=== PATIENT | female | born 1990 | race Caucasian/White ===

== ENCOUNTER 2017-11-18 14:09 | Emergency (ER) | payer OTHER, SELFPAY ==
[2017-11-18 14:15] VITALS: BP 124/86; PULSE 102; RESP 20; TEMP 36.5; O2SAT 97; BMI 32.3
--- NOTE | 2017-11-18 14:31 | HMH.EDUTC ---
[facility] [place] Disposition Clinical Impression: Vertigo Disposition: Home, Self-Care Condition on Discharge: Good Instructions: DI for Vertigo Additional Instructions: F/U with Dr Leggett if not improving Prescriptions: methylPREDNISolone [Medrol] 4 mg PO DIRECTED 6 Days #1 tab.ds.pk methylPREDNISolone [Medrol] 4 mg PO DIRECTED 6 Days #1 tab.ds.pk Meclizine HCl [Motion Sickness Relief] 25 mg PO TID PRN 10 Days #30 tab PRN Reason: Vertigo Referrals: Ervin Leggett MD [Primary Care Provider] - Time of Disposition: 14:37 Medical Decision Making - Kaleb Inquiry Pt receiving controlled substance: No Vital Signs: 11/18/17 14:15 Temperature 97.7 F Temperature Source Temporal Artery Scan Pulse Rate [Brachial] 102 H Respiratory Rate 20 Blood Pressure [Right Arm] 124/86 Blood Pressure Mean [Right Arm] 98 Blood Pressure Position [Right Arm] Sitting 02 Sat by Pulse Oximetry 97 Oxygen Delivery Method Room Air [facility] [place] HPI - General Stated complaint: dizzy Time Seen by Provider: 11/18/17 14:20 Mode of Arrival: Ambulatory Source of Information: Patient Limitations: No Limitations Description of Symptoms (Recalled from Triage Doc. by RN): DIZZY WITH MOVEMENT THAT BEGAN YESTERDAY HEENT Symptoms (Recalled from RN notes): Yes Resp Symptoms (Recalled from RN notes): No Skin Symptoms (Recalled from RN notes): No MS Symptoms (Recalled from RN notes): No Functional Status (Recalled from RN notes): NA - History of Present Illness Provider Complaint: Dizziness X 1 day. Nausea but no vomiting. Worse with movement. Feels like the room is spinning. No ear pain. No sore throat. Onset (ago): day(s) (1) Location: head Relieving factors: none Exacerbating factors: none Associated symptoms: denies other symptoms Treatments prior to arrival: none - Related Data Previous Rx's Medication Instructions Recorded Meclizine HCl [Motion Sickness 25 mg PO TID PRN 10 Days #30 tab 11/18/17 Relief] methylPREDNISolone [Medrol] 4 mg PO DIRECTED 6 Days #1 11/18/17 tab.ds.pk methylPREDNISolone [Medrol] 4 mg PO DIRECTED 6 Days #1 11/18/17 tab.ds.pk Allergies Allergy/AdvReac Type Severity Reaction Status Date / Time No Known Allergies Allergy Verified 11/18/17 14:18 - Worker's Comp Is this a Worker's Comp case?: No [facility] History I have reviewed the patient's past medical history: Yes Laterality Cases: Bilateral: Tonsillectomy - Social History Alcohol Intake: never - Psychiatric History Expresses thoughts of harming self/others: None Suicide Plan Description: No Plan ROS Obtained: Yes All systems reviewed & no additional complaints - Gastrointestinal Gastrointestingal: Reports: nausea - Neurologic Neurologic: Reports dizziness, Reports vertigo Physical Exam - General General appearance: alert, in no apparent distress - Head Head exam: atraumatic, normocephalic - Eye Eye exam: Present: normal appearance, PERRL, nystagmus - ENT ENT exam: Present: normal exam, normal oropharynx - Chest Chest inspection: Present: normal inspection, symmetric chest wall rise - Respiratory Respiratory exam: Present: normal lung sounds bilaterally - Cardiovascular Cardiovascular exam: Present: regular rate, normal rhythm - Extremities Exam Extremities exam: Present: normal inspection, full ROM - Neurological Exam Neurological exam: Present: alert, oriented X3 - Psychiatric Psychiatric exam: Present: normal affect, normal mood - Skin Skin exam: Present: warm, dry, intact
--- NOTE | 2017-11-18 14:34 | ED_ITS ---
[facility] [place] Disposition Clinical Impression: Vertigo Disposition: Home, Self-Care Condition on Discharge: Good Instructions: DI for Vertigo Additional Instructions: F/U with Dr Leggett if not improving Prescriptions: methylPREDNISolone [Medrol] 4 mg PO DIRECTED 6 Days #1 tab.ds.pk methylPREDNISolone [Medrol] 4 mg PO DIRECTED 6 Days #1 tab.ds.pk Meclizine HCl [Motion Sickness Relief] 25 mg PO TID PRN 10 Days #30 tab PRN Reason: Vertigo Referrals: Ervin Leggett MD [Primary Care Provider] - Time of Disposition: 14:37 Medical Decision Making - Kaleb Inquiry Pt receiving controlled substance: No Vital Signs: 11/18/17 14:15 Temperature 97.7 F Temperature Source Temporal Artery Scan Pulse Rate [Brachial] 102 H Respiratory Rate 20 Blood Pressure [Right Arm] 124/86 Blood Pressure Mean [Right Arm] 98 Blood Pressure Position [Right Arm] Sitting 02 Sat by Pulse Oximetry 97 Oxygen Delivery Method Room Air [facility] [place] HPI - General Stated complaint: dizzy Time Seen by Provider: 11/18/17 14:20 Mode of Arrival: Ambulatory Source of Information: Patient Limitations: No Limitations Description of Symptoms (Recalled from Triage Doc. by RN): DIZZY WITH MOVEMENT THAT BEGAN YESTERDAY HEENT Symptoms (Recalled from RN notes): Yes Resp Symptoms (Recalled from RN notes): No Skin Symptoms (Recalled from RN notes): No MS Symptoms (Recalled from RN notes): No Functional Status (Recalled from RN notes): NA - History of Present Illness Provider Complaint: Dizziness X 1 day. Nausea but no vomiting. Worse with movement. Feels like the room is spinning. No ear pain. No sore throat. Onset (ago): day(s) (1) Location: head Relieving factors: none Exacerbating factors: none Associated symptoms: denies other symptoms Treatments prior to arrival: none - Related Data Previous Rx's Medication Instructions Recorded Meclizine HCl [Motion Sickness 25 mg PO TID PRN 10 Days #30 tab 11/18/17 Relief] methylPREDNISolone [Medrol] 4 mg PO DIRECTED 6 Days #1 11/18/17 tab.ds.pk methylPREDNISolone [Medrol] 4 mg PO DIRECTED 6 Days #1 11/18/17 tab.ds.pk Allergies Allergy/AdvReac Type Severity Reaction Status Date / Time No Known Allergies Allergy Verified 11/18/17 14:18 - Worker's Comp Is this a Worker's Comp case?: No [facility] History I have reviewed the patient's past medical history: Yes Laterality Cases: Bilateral: Tonsillectomy - Social History Alcohol Intake: never - Psychiatric History Expresses thoughts of harming self/others: None Suicide Plan Description: No Plan ROS Obtained: Yes All systems reviewed & no additional complaints - Gastrointestinal Gastrointestingal: Reports: nausea - Neurologic Neurologic: Reports dizziness, Reports vertigo Physical Exam - General General appearance: alert, in no apparent distress - Head Head exam: atraumatic, normocephalic - Eye Eye exam: Present: normal appearance, PERRL, nystagmus - ENT ENT exam: Present: normal exam, normal oropharynx - Chest Chest inspection: Present: normal inspection, symmetric chest wall rise - Respiratory Respiratory exam: Present: normal lung sounds bilaterally - Cardiovascular Cardiovascular exam: Present: regular rate, normal rhythm - Extremiti
[2017-11-18 14:35] VITALS: BP 124/86; PULSE 102; RESP 20; TEMP 36.5; O2SAT 97
== END 2017-11-18 14:41 | disposition home or self-care (01) ==
PROVIDERS: Emergency Provider Physician Assistant; Family Provider Family Medicine; PCP Family Medicine
DX: R42 Dizziness and giddiness (principal); R11.0 Nausea
CPT/HCPCS: 99201

== ENCOUNTER → 2018-04-28 15:26 | Outpatient (CLI) | payer OTHER, SELFPAY ==
--- NOTE | 2018-04-28 15:28 | MR_ITS ---
MR head/brain wo con HISTORY: The vertigo and blurred vision ITS.REASON: DIZZINESS, NEW ONSET HEADACHE ORDERING PHYSICIAN: Nadeen Wills PATIENT AGE: 27 years Comparison: 11/18/2014 TECHNIQUE: Standard multiplanar multiecho sequences are performed without contrast. FINDINGS: No midline shift, mass effect, intracranial hemorrhage, or hydrocephalus is evident. Cerebellopontine angles, cerebellum, and brainstem are unremarkable. No acute infarction. Normal jung-white matter differentiation. The pituitary and optic chiasm are unremarkable. No cerebellar ectopia. The hippocampal gyri are unremarkable. No mastoid effusion or sinus air-fluid level. IMPRESSION: Negative MRI of the brain without contrast
== END ==
PROVIDERS: Family Provider Family Medicine; PCP Family Medicine; Visit Provider Nurse Practitioner Family
DX: R42 Dizziness and giddiness (principal); R51 Headache
CPT/HCPCS: 70551

== ENCOUNTER → 2018-05-16 12:25 | Outpatient (CLI) | payer OTHER, SELFPAY ==
[2018-05-16 15:20] LABS: Erythrocyte Sedimentation Rate 16 mm/hr (0-20)
[2018-05-17 14:20] LABS: Anti-Centromere B Antibodies <0.2 AI (0.0-0.9); Anti-Jo-1 <0.2 AI (0.0-0.9); Anti-Smith Antibody <0.2 AI (0.0-0.9); Antichromatin Antibodies <0.2 AI (0.0-0.9); Antiscleroderma-70 Antibodies <0.2 AI (0.0-0.9); RNP Antibodies <0.2 AI (0.0-0.9); Sjogren's Anti-SS-A <0.2 AI (0.0-0.9); Sjogren's Anti-SS-B <0.2 AI (0.0-0.9)
[2018-05-18 11:26] LABS: Anti-DNA (DS) Ab Qn <1 IU/mL (0-9)
== END ==
PROVIDERS: PCP Nurse Practitioner Family; Visit Provider Specialist
DX: R42 Dizziness and giddiness (principal); R51 Headache
CPT/HCPCS: 36415; 85651; 86225; 86235

== ENCOUNTER → 2018-05-17 16:09 | Outpatient (CLI) | payer OTHER, SELFPAY | PROVIDERS: PCP Nurse Practitioner Family; Visit Provider Specialist | DX: G47.19 Other hypersomnia (principal); R06.83 Snoring; R42 Dizziness and giddiness | CPT/HCPCS: 95806 ==

== ENCOUNTER → 2018-05-27 13:10 | Outpatient (CLI) | payer OTHER, SELFPAY ==
--- NOTE | 2018-05-27 13:11 | MR_ITS ---
MR venography head wo con HISTORY: ITS.REASON: headache, vertigo ORDERING PHYSICIAN: Emani Valencia MD PATIENT AGE: 27 years Comparison: None TECHNIQUE: 2-D xxnp-by-xowoyu images were performed. FINDINGS: The superior sagittal sinus has an unremarkable appearance. There is some decreased signal within the sigmoid sinus on the left. As is also present on the right but somewhat less apparent may be due to slow flow in these areas. IMPRESSION: No evidence of sagittal sinus thrombosis
--- NOTE | 2018-05-27 13:11 | MR_ITS ---
MR angio head wo con HISTORY: ITS.REASON: headache, vertigo ORDERING PHYSICIAN: Emani Valencia MD PATIENT AGE: 27 years Comparison: 04/28/2018 TECHNIQUE: 3-D [id number] images performed without contrast. FINDINGS: No evidence of aneurysm, arteriovenous malformation, or major intracranial occlusive process. There is persistent origin of the right posterior cerebral artery as a normal variant. IMPRESSION: Negative MRA of the brain
== END ==
PROVIDERS: Family Provider Family Medicine; PCP Nurse Practitioner Family; Visit Provider Specialist
DX: R42 Dizziness and giddiness (principal); R51 Headache
CPT/HCPCS: 70544

== ENCOUNTER 2018-06-28 17:30 | Outpatient (RCR) | payer OTHER, SELFPAY ==
--- NOTE | 2018-06-06 17:22 | HMH.PTOPEV ---
PT Outpatient Evaluation Rehab PT Outpatient Evaluation Start: 06/06/18 16:51 Freq: Status: Active Protocol: Document 06/06/18 16:52 DINORA (Rec: 06/06/18 17:22 DINORA [id number]) Electronically Signed By Santiago Blake, PT 06/06/18 16:52 Outpatient Therapy Subjective History Subjective History This is the initial OP PT vestibular evaluation for c/o dizziness, MCDANIEL's, and neck pain . Pt reports insidious onset in March or April of this year. Pt reports sometimes she is woken up by vertigo. Pt reports she has had migraines for years but recently became daily about the same time as the dizziness started. Pt also c/o cervical pain which is chronic and constant. 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 Yes Activity at onset unknown Prior Functional Limitations Prior Functional [place] Level total I Current Functional Limitations Comment difficulty w/ sleep and work, along with highly congested areas Hx of Falls Hx Falls No Gait/Posture Asssessment General Gait Observation No Deviations/Normal [place] Feet Together/Eyes open/Stable Surface pass Feet Together/Eyes Closed/Stable Surface pass Feet Together/Eyes open/Unstable Surface pass Feet Together/Eyes Closed/Unstable pass Surface Outpatient Therapy Assessment Impairments Problems/Impairmments Impaired Recreational Activities Impaired Work Activities Subjective C/O Pain Prognosis Rehab Potential Fair Clinical Impression Consistent with Diagnosis Yes Short Term Goals Number of Weeks 3 Decreased Palpation Tenderness Yes Improve Ability For Household Care Yes Imp
== END 2018-06-28 17:31 | disposition home or self-care (01) ==
LOC: PT 17:30
PROVIDERS: Family Provider Family Medicine; PCP Nurse Practitioner Family; Visit Provider Specialist
DX: R42 Dizziness and giddiness (principal)
CPT/HCPCS: 97010; 97014; 97110; 97140; 97163; G0283

== ENCOUNTER → 2019-04-18 14:13 | Outpatient (CLI) | payer OTHER, SELFPAY | PROVIDERS: Visit Provider Obstetrics & Gynecology | DX: N93.8 Other specified abnormal uterine and vaginal bleeding (principal); R53.83 Other fatigue | CPT/HCPCS: 36415; 84443 ==

== ENCOUNTER → 2019-05-01 13:45 | Outpatient (CLI) | payer OTHER, SELFPAY ==
--- NOTE | 2019-05-01 13:46 | US_ITS ---
PROCEDURE: US TRANSVAGINAL CLINICAL INDICATION: PELVIC PAIN Heavy irregular cycles, dysfunctional uterine bleeding, left lower quadrant pain COMPARISON: No exams were available for comparison FINDINGS: Uterus is 10 x 4.3 x 5.2 cm with a combined endometrial thickness of 9 mm. The left ovary is 3 x 2 cm and contains a 1.7 cm cyst. The right ovary is 3 x 2 cm and contains a 1 cm cyst. No cul-de-sac fluid evident. Nabothian cysts are noted. IMPRESSION: Bulky uterus with small bilateral ovarian cysts Dictated by: Ted Gunn MD 05/01/2019 18:15 Electronically signed by Ted Gunn MD in [place] 05/01/2019 18:15
== END ==
PROVIDERS: PCP Family Medicine; Visit Provider Obstetrics & Gynecology
DX: R10.2 Pelvic and perineal pain (principal)
CPT/HCPCS: 76830

== ENCOUNTER → 2019-05-30 15:57 | Outpatient (CLI) | payer OTHER, SELFPAY ==
[2019-05-30 16:05] LABS: Microscopic, Urine URINE MICROSCOPIC (MICROSCOPIC)
[2019-05-30 16:31] LABS: Appearance,Urine CLEAR (Clear); Bilirubin,Urine Negative (Negative); Blood, Urine Negative (Negative); Color,Urine YELLOW (Yellow); Glucose,Urine (UA) Negative (Negative); Ketones,Urine Negative (Negative); Leukocyte Esterase,Urine 1+ (Negative); Nitrate,Urine Negative (Negative); Protein,Urine Negative (Negative); Urobilinogen,Urine 0.2 EU/dl (0.2)
[2019-05-30 16:52] LABS: Bacteria,Urine 2+ /lpf
[2019-05-30 16:57] LABS: Basophils % 0.5 % (0.1-2.0); Eosinophils # 0.1 K/mm3 (0.0-0.4); Eosinophils % 1.1 % (0.1-12.0); Hematocrit 39.6 % (37.0-47.0); Hemoglobin 12.3 g/dL (12.2-16.2); Lymphocytes # 2.8 K/mm3 (0.7-4.5); Lymphocytes % 37.8 % (10-50); Mean Corpuscular HGB Conc 31.1 g/dL (31.8-35.4); Mean Corpuscular Hemoglobin 25.8 pg (27.0-31.2); Mean Platelet Volume 7.3 fl (7.4-10.4); Monocytes # 0.5 K/mm3 (0.1-1.0); Monocytes % 6.2 % (1.7-9.3); Neutrophils # 4.1 K/mm3 (1.8-7.8); Neutrophils % 54.5 % (37.0-80.0); Platelet Count 315 K/mm3 (142-424); Red Blood Count 4.77 M/mm3 (4.20-5.40); Red Cell Distribution Width 13.5 % (11.5-17.5); White Blood Count 7.5 K/mm3 (4.8-10.8)
[2019-05-30 17:23] LABS: HCG Qualitative, Serum Negative (Negative)
[2019-05-30 18:11] LABS: Alanine Aminotransferase 20 U/L (12-78); Albumin Level 3.9 gm/dL (3.4-5.0); Albumin/Globulin Ratio 1.1 (1.1-1.8); Alkaline Phosphatase 67 U/L (46-116); Aspartate Amino Transferase 9 U/L (15-37); Bilirubin,Total 0.4 mg/dL (0.2-1.0); Blood Urea Nitrogen 19 mg/dL (7-18); Calcium 8.7 mg/dL (8.5-10.1); Carbon Dioxide 30 mmol/L (21.0-32.0); Chloride 103 mmol/L (98-107); Estimated Glomerular Filt Rate 75 ml/min (>60); GFR (African American) 91 ML/MIN (>60); Globulin 3.4 gm/dl (1.3-3.2); Glucose 108 mg/dL (74-106); Sodium 141 mmol/L (136-145); Total Protein,Serum 7.3 gm/dL (6.4-8.2)
== END ==
PROVIDERS: Visit Provider Obstetrics & Gynecology
DX: Z01.818 Encounter for other preprocedural examination (principal); N93.8 Other specified abnormal uterine and vaginal bleeding
CPT/HCPCS: 36415; 80053; 81001; 84703; 85025; 87086

== ENCOUNTER → 2020-05-10 13:46 | Outpatient (CLI) | payer OTHER, SELFPAY ==
--- NOTE | 2020-05-10 13:46 | US_ITS ---
PROCEDURE: US TRANSVAGINAL CLINICAL INDICATION: Heavy Bleeding COMPARISON: US US TRANSVAGINAL from 05/01/2019 FINDINGS: UTERUS: 10cm x 5cmx 4cm with a combined endometrial thickness of 7 mm LEFT OVARY: [id number] with a volume of 10ml. RIGHT OVARY: [id number] with a volume of 5.7ml. There is a small focal area of increased echogenicity involving the endometrium at the fundal area possibly due to small polyp.. There are bilateral ovarian follicles measuring up to 9 mm on the left and 8 mm on the right. No cul-de-sac fluid.. IMPRESSION: 1. Bulky uterus with possible small endometrial polyp 2. Small bilateral ovarian follicles Dictated by: Ted Gunn MD 05/10/2020 18:00 Ted Gunn MD in [place] 05/10/2020 18:00
== END ==
PROVIDERS: PCP Family Medicine; Visit Provider Nurse Practitioner Obstetrics & Gynecology
DX: N92.0 Excessive and frequent menstruation with regular cycle (principal)
CPT/HCPCS: 76830

== ENCOUNTER → 2020-08-01 07:49 | Outpatient (CLI) | payer OTHER, SELFPAY ==
[2020-08-01 08:05] LABS: Basophils # 0.1 K/mm3 (0-0.2); Basophils % 0.7 % (0.1-2.0); Eosinophils # 0.1 K/mm3 (0.0-0.4); Eosinophils % 1.4 % (0.1-12.0); Hematocrit 43.3 % (37.0-47.0); Hemoglobin 14.5 g/dL (12.2-16.2); Lymphocytes # 2.3 K/mm3 (0.7-4.5); Lymphocytes % 31.6 % (10-50); Mean Corpuscular HGB Conc 33.5 g/dL (31.8-35.4); Mean Corpuscular Hemoglobin 27.9 pg (27.0-31.2); Mean Corpuscular Volume 83.3 fl (81-99); Monocytes # 0.4 K/mm3 (0.1-1.0); Monocytes % 5.4 % (1.7-9.3); Neutrophils # 4.4 K/mm3 (1.8-7.8); Platelet Count 264 K/mm3 (142-424); Red Cell Distribution Width 13.7 % (11.5-17.5); White Blood Count 7.2 K/mm3 (4.8-10.8)
[2020-08-01 08:16] LABS: Chloride 104 mmol/L (98-107); Potassium 4.1 mmoL/L (3.5-5.1); Sodium 139 mmol/L (136-145)
[2020-08-01 08:19] LABS: Blood Urea Nitrogen 19 mg/dl (7-17); Estimated Glomerular Filt Rate 85 ml/min (>60); GFR (African American) 103 ML/MIN (>60)
[2020-08-01 08:20] LABS: Anion Gap 11.1 mEq/L (5-15); Calcium 9.5 mg/dl (8.4-10.2); Carbon Dioxide 28 mmol/L (22.0-30.0); Glucose 124 mg/dl (74-100)
[2020-08-01 09:31] LABS: Coronavirus 19 IgG Antibody Negative (Negative); Coronavirus 19 IgM Antibody Negative (Negative)
[2020-08-01 10:42] LABS: HCG Qualitative, Serum Negative (Negative)
== END ==
PROVIDERS: Visit Provider Nurse Practitioner Obstetrics & Gynecology
DX: Z01.818 Encounter for other preprocedural examination (principal); Z03.818 Encounter for observation for suspected exposure to other biological agents ruled out; N92.0 Excessive and frequent menstruation with regular cycle; N93.9 Abnormal uterine and vaginal bleeding, unspecified
CPT/HCPCS: 36415; 80048; 84703; 85025; 86328

== ENCOUNTER 2020-08-02 06:07 | Day surgery (SDC) | payer OTHER, SELFPAY ==
[2020-08-02] VITALS (13 sets, daily range): BP systolic 115–145; BP diastolic 75–91; PULSE 77–100; RESP 12–20; TEMP 36.4–43; O2SAT 95–98; BMI 39.5
--- NOTE | 2020-08-02 07:50 | P.OP_ITS ---
Date of procedure: 08/02/20 Pre-op Diagnosis:: Menorrhagia Post-op Diagnosis:: Menorrhagia Procedure performed:: Hysteroscopy, dilation and curettage, NovaSure ablation Surgeon:: Neville Simpson MD SUPPORT ANALYST:: Tom Rivera Anesthesia: LMA Estimated blood loss (mL): 50 Clinical Note:: She is a 29-year-old lady who complains of very heavy periods. She had a p revious tubal ligation. An endometrial biopsy was negative for hyperplasia. After having discussed the risks and benefits we elected perform a hysteroscopy, D&C and NovaSure ablation. Operative findings:: She had an anteverted bulky uterus. The uterus sounded to 9 cm and was 4.0 cm wide. There was a 3 mm endometrial polyp on the anterior endometrial wall. Operative note:: She was taken to the operating room where LMA anesthesia was found be adequate. She was prepped and draped in the normal sterile fashion in the lithotomy position. A weighted speculum was placed in the vagina and the anterior lip of the cervix was grasped with a tenaculum. The cervix was then dilated to approximately 6 mm. I then inserted a hysteroscope into the uterine cavity and the findings were as previously dictated. I then performed a gentle curettage with a medium curette. I then sounded the uterus and determine the length of the uterus. The length of the uterus was found to be 9 cm and the endometrial cavity was 6.5 cm. The width was 4.0 cm. This was placed into the NovaSure device. I then inserted the NovaSure device and determine the width of the endometrial cavity. I then ran the device through its program. I further inspected the endometrial cavity and was found to be completely charred. I then injected 30 cc of 0.5% ropivacaine at the 3:00, 5:00, 7:00, and 9:00 positions of the cervix. She tolerated procedure well and was taken to the recovery room in excellent condition. All sponge and instrument counts were correct. The estimated blood loss was less than 50 cc. Condition: stable Disposition: PACU Specimens:: Endometrial curettings Complications:: None
--- NOTE | 2020-08-02 07:55 | P.PN_ITS ---
[facility] Anesthesia Checklist - Structural Data Admitted From: Home Planned Operative Procedure/s: d/c.hyst Consent for Planned Operative Procedure(s) Verified: Yes - Additional verifications Anesthesia Reactions: No Hx Blood Transfusions: No Blood Transfusion Reaction: No - Airway Assessment C-Spine Mobility Assessed: Yes TMJ Mobility Assessed: Yes Dentition: Good Dentition - Neurological Assessment Level of Consciousness: Awake, Alert, Appropriate - Anesthesia Plan Anesthesia Risk discussed: Yes Anesthesia Plan: Verified ASA Class: III Anesthesia Type: General [facility] History I have reviewed the patient's past medical history: Yes Medical History: Reports:: Migraine, Seizures Denies:: Cancer, Diabetes Mellitus Type 1, Diabetes Mellitus Type 2, Hypertension, Internal Pacemaker, MRSA *Have you ever received a pneumonia vaccine?: No *Have you received a flu vaccine this season?: Yes Other Medical History: Denies: Blood Transfusion Reaction Anesthesia experience/problems:: none Laterality Cases: Bilateral: Tonsillectomy Other Surgeries: Yes: Tubal Ligation. No: Pacemaker Amputation: No Fractures: No - *Social History Last grade of school completed: High school graduate Smoking Status: Never smoker Alcohol Intake: never Alcohol Intake Frequency:: holidays/special occasions only Substance Use Type: denies use *Occupational Status:: employed Housing: house Household Members: spouse *Travel in the last 8 weeks: None Family Hx:: Diabetes
--- NOTE | 2020-08-02 07:56 | P.PN_ITS ---
[facility] Anesthesia Record Part I Intake, IV Amount: 1,500 Estimated blood loss (mL): 10 Urine output (mL): 0 Blood Pressure: 131/86 SaO2: 96 Pulse Rate: 100 Respiratory Rate: 12 Temperature: 97.5 F Patient is:: Awake, Stable Stable to PACU at:: 07:55
--- NOTE | 2020-08-02 13:58 | P.PN_ITS ---
[facility] Anesthesia Record Part II Discharge Time: 08:25 Destination: [facility] PACU nurse assessment reviewed?: Yes Patient Condition:: Good Anesthesia Complications:: None Swallowing reflex intact?: Yes Cyanosis?: No Blood Pressure: 145/78 Pulse Rate: 100 Temperature: 97.9 F Mental Status: Alert & Oriented Pain level:: 5 Nausea and/or vomitting:: None Intake, IV Amount: 1,500
== END 2020-08-02 09:09 | disposition home or self-care (01) ==
LOC: OR 06:09
PROVIDERS: PCP Family Medicine; Visit Provider Nurse Practitioner Obstetrics & Gynecology
PROC: 0U5B8ZZ Destruction of Endometrium, Via Natural or Artificial Opening Endoscopic (ICD-10-PCS; CPT 58563; principal; 2020-08-02 07:30)
DX: N93.9 Abnormal uterine and vaginal bleeding, unspecified (principal); N92.0 Excessive and frequent menstruation with regular cycle; G43.909 Migraine, unspecified, not intractable, without status migrainosus; R56.9 Unspecified convulsions; Z83.3 Family history of diabetes mellitus
CPT/HCPCS: 58563; 96374; J2405

== ENCOUNTER 2023-04-15 16:54 | Emergency (ER) | payer OTHER, SELFPAY ==
[2023-04-15 17:05] VITALS: BP 149/102; PULSE 85; RESP 20; TEMP 36.7; O2SAT 99; BMI 43.5
[2023-04-15 17:21] LABS: Microscopic, Urine URINE MICROSCOPIC (MICROSCOPIC)
--- NOTE | 2023-04-15 17:22 | EXP.UTC ---
Discharge Plan Disposition Patient Disposition: Home, Self-Care Condition: Good Prescriptions Prescriptions: New phenazopyridine [Pyridium] 200 mg tablet 200 mg PO Q8H 2 Days Qty: 6 0RF ciprofloxacin HCl [Cipro] 500 mg tablet 500 mg PO BID 7 Days Qty: 14 0RF ondansetron 4 mg Tablet,Disintegrating 4 mg PO Q8H PRN (Reason: Nausea) Qty: 12 0RF No Action amoxicillin 500 mg tablet 500 mg PO BID 10 Days Qty: 20 0RF prednisone 20 mg tablet 20 mg PO BID 5 Days Qty: 10 0RF propranolol 40 MG tablet 40 mg PO BID Referrals Follow up/Referrals: Nadeen Wills APRN [Primary Care Provider] - See instructions Activity Restrictions/Add. Instructions Additional Instructions/Restrictions: Drink plenty of fluids. Take tylenol or ibuprofen for pain or fever. Take the medications as directed. Follow up with your regular doctor. GO TO THE ER FOR ANY WORSENING SYMPTOMS The pyridium will make your urine turn orange, this is an expected side effect. It will stain your clothes if it comes into contact with them. We will culture the urine. That will tell what bacteria is causing your infection and which antibiotics will treat it best. Sometimes the first antibiotic we prescribe turns out to not work against different bacteria. So, make sure you follow up within 3 days if you are not getting better. Clinical Impressions Clinical Impression: UTI (urinary tract infection) Stand Alone Forms Stand Alone Forms: Work/School Release Instructions Patient Instructions: Urine Culture, DI for Urinary Tract Infection (UTI), Phenazopyridine Discharge ED Provider: Roge Ross [facility] General Stated complaint: possible UTI Mode of Arrival: Ambulatory Source of Information: Patient Limitations: No Limitations Time Seen by Provider: 04/15/23 17:22 Description of Symptoms (Recalled from Triage Doc. by RN): PATIENT C/O BLEEDING WITH URINATION THAT STARTED TODAY HEENT Symptoms (Recalled from RN notes): No Resp Symptoms (Recalled from RN notes): No Skin Symptoms (Recalled from RN notes): No MS Symptoms (Recalled from RN notes): No Functional Status (Recalled from RN notes): WNL History of Present Illness Provider Complaint: She states that she has had dysuria, urinary frequency and hematuria since earlier today. She also has back pain. Related Data Home Medications Medication Instructions Recorded Confirmed propranolol 40 mg tablet 40 mg PO BID migraines 06/02/19 03/17/23 Previous Rx's Medication Instructions Recorded amoxicillin 500 mg tablet 500 mg PO BID 10 days #20 tabs 03/17/23 prednisone 20 mg tablet 20 mg PO BID 5 days #10 tabs 03/17/23 ciprofloxacin HCl 500 mg tablet 500 mg PO BID 7 days #14 tabs 04/15/23 (Cipro) ondansetron 4 mg disintegrating 4 mg PO Q8H PRN Nausea #12 tabs 04/15/23 tablet phenazopyridine 200 mg tablet 200 mg PO Q8H 2 days #6 tabs 04/15/23 (Pyridium) Allergies Allergy/AdvReac Type Severity Reaction Status Date / Time No Known Allergies Allergy Verified 03/17/23 11:16 Worker's Comp Is this a Worker's Comp case?: No [facility] Disclaimer: The information contained in this section may have been updated after the patient was seen, as this information can be updated by other users. Social History Smoking Status: Never smoker alcohol intake: never substance use type: denies use current occupational status: employed Travel in the last 8 weeks: None household members: spouse housing: house current occupation: [employer] caffeine: No ROS Obtained: Yes All systems reviewed & no additional complaints except as documented Constitutional Constitutional: Reports system reviewed and no additional complaints, except as documented, Denies chills and Denies fever(s) Eyes Eyes: Denies eye discharge ENT Ears, Nose, Mouth, and Throat: Denies dysphagia, Denies sore throat and Denies th
[2023-04-15 17:54] VITALS: BP 149/102; PULSE 85; RESP 20; TEMP 36.7; O2SAT 99
[2023-04-15 17:58] LABS: Appearance,Urine Cloudy (Clear); Bilirubin,Urine Negative (Negative); Blood, Urine 3+ (Negative); Color,Urine Red (Yellow); Glucose,Urine (UA) Negative (Negative); Ketones,Urine Negative (Negative); Leukocyte Esterase,Urine Trace (Negative); Nitrate,Urine Positive (Negative); Protein,Urine 2+ (Negative); Specific Gravity, Urine 1.025 (1.005-1.030); Urobilinogen,Urine 0.2 EU/dl (0.2)
[2023-04-15 17:59] LABS: RBC,Urine TNTC #/hpf (0-3); Squamous Epithelial Cell,Urine Occasional #/hpf (0-5)
== END 2023-04-15 17:57 | disposition home or self-care (01) ==
PROVIDERS: Emergency Provider Nurse Practitioner Family; PCP Nurse Practitioner Family
DX: N39.0 Urinary tract infection, site not specified (principal); B96.89 Other specified bacterial agents as the cause of diseases classified elsewhere; M54.59 Other low back pain
CPT/HCPCS: 81001; 87086; 87088; 87186; 96372; 99204; 99212; G0463; J0696